=== PATIENT | female | born 1960 | race Caucasian/White ===

== ENCOUNTER 2017-08-13 06:18 | Day surgery (SDC) | payer BC ==
[~2017-08-13] VITALS: Ht 157.5 cm; Wt 64.4 kg
[~2017-08-13 06:18] MED LIST: ALBUTEROL SUL0.083 % IN; AMOXICILLIN500 MG PO; CIPRO500 MG OR; CIPRO500 MG PO; CIPROFLOXACN500 MG PO; FLEXERIL10 MG PO; FLEXERIL5 M1 PO; LORTAB 10-325 M1 TAB PO; LYRICA100 MG PO; MEDDOSEPAK PO; NAPROSYN500 MG PO; NO; NO MEDS; PERCOCET 5/325M1 TAB PO; PREDNISONE20 MG PO; PROAIR HFA IN; SYMBICORT 80-4.5MCG; TYLOPHEN500 MG PO; VALIUM5 MG PO
[2017-08-13 07:56] VITALS: BP 122/80
== END 2017-08-13 08:33 | disposition home or self-care (01) | DRG 558 ==
LOC: ORM 06:18
PROVIDERS: ATTEND Anesthesiology Pain Medicine
PROC: 3E0U33Z Introduction of Anti-inflammatory into Joints, Percutaneous Approach (ICD-10-PCS; principal; 2017-08-13)
PROC: 3E0U3BZ Introduction of Anesthetic Agent into Joints, Percutaneous Approach (ICD-10-PCS; 2017-08-13)
DX: M70.61 Trochanteric bursitis, right hip (principal); M70.71 Other bursitis of hip, right hip

== ENCOUNTER 2017-10-08 06:37 | Day surgery (SDC) | payer BC ==
[~2017-10-08] VITALS: Ht 157.5 cm; Wt 63.5 kg
[2017-10-08 08:24] VITALS: BP 105/63
== END 2017-10-08 09:05 | disposition home or self-care (01) | DRG 558 ==
LOC: ORM 06:37
PROVIDERS: ATTEND Anesthesiology Pain Medicine
PROC: 3E0U33Z Introduction of Anti-inflammatory into Joints, Percutaneous Approach (ICD-10-PCS; principal; 2017-10-08)
PROC: 3E0U3BZ Introduction of Anesthetic Agent into Joints, Percutaneous Approach (ICD-10-PCS; 2017-10-08)
DX: M70.61 Trochanteric bursitis, right hip (principal); M70.71 Other bursitis of hip, right hip

== ENCOUNTER 2018-03-11 06:20 | Day surgery (SDC) | payer BC ==
[~2018-03-11] VITALS: Ht 157.5 cm; Wt 64.4 kg
[~2018-03-11 06:20] MED LIST changes: +STIOLTO RESPIMA1 AER PO
[2018-03-11] MEDS ORDERED: [UNRECOGNIZED DRUG - OTHER] (06:39)
[2018-03-11 08:52] VITALS: BP 107/69
== END 2018-03-11 09:00 | disposition home or self-care (01) | DRG 951 ==
LOC: ENDO 06:20
PROVIDERS: ATTEND Surgery
PROC: 0DBK8ZX Excision of Ascending Colon, Via Natural or Artificial Opening Endoscopic, Diagnostic (ICD-10-PCS; principal; 2018-03-11)
PROC: 0DBN8ZX Excision of Sigmoid Colon, Via Natural or Artificial Opening Endoscopic, Diagnostic (ICD-10-PCS; 2018-03-11)
PROC: 0DBP8ZX Excision of Rectum, Via Natural or Artificial Opening Endoscopic, Diagnostic (ICD-10-PCS; 2018-03-11)
PROC: 0DBH8ZX Excision of Cecum, Via Natural or Artificial Opening Endoscopic, Diagnostic (ICD-10-PCS; 2018-03-11)
DX: Z12.11 Encounter for screening for malignant neoplasm of colon (principal); Q43.8 Other specified congenital malformations of intestine; D12.0 Benign neoplasm of cecum; D12.2 Benign neoplasm of ascending colon; K62.1 Rectal polyp; K63.5 Polyp of colon; K64.4 Residual hemorrhoidal skin tags; Z87.891 Personal history of nicotine dependence

== ENCOUNTER → 2018-09-02 | Outpatient (REF) | payer BC ==
[~2018-09-02] VITALS: Ht 157.5 cm; Wt 62.1 kg
[~2018-09-02] MED LIST changes: +VITAMIN B-121000 MCG PO; +VITAMIN C1000 MG PO; +VITAMIN D31000 UNI1 PO; +[UNRECOGNIZED DRUG - OTHER]
[2018-09-02 11:19] LABS: HEMATOCRIT 45.4 % (37.0-47.0); HEMOGLOBIN 15.1 g/dl (12.0-16.0); IMMATURE GRANULOCYTES 0.2 % (0.0-5.0); MEAN CORPUSCULAR HGB 30.9 pG CALC (26.0-32.0); MEAN CORPUSCULAR HGB CONC 33.3 g/L CALC (32.0-36.0); NEUT# 7.13 thou/uL (2.00-7.15); RED BLOOD COUNT 4.88 mill/uL (4.20-5.60); RED CELL DISTRI WIDTH 11.9 % (11.5-15.5)
[2018-09-02 11:22] LABS: URINE BILIRUBIN - DIPSTICK NEGATIVE (NEGATIVE); URINE BLOOD DIPSTICK MODERATE (NEGATIVE); URINE COLOR YELLOW; URINE GLUCOSE - DIPSTICK NEGATIVE (NEGATIVE); URINE KETONE NEGATIVE (NEGATIVE); URINE PROTEIN - DIPSTICK NEGATIVE (NEG-TRACE); URINE SPECIFIC GRAVITY <=1.005; URINE UROBILINOGEN - DIPSTICK 0.2 E.U./dL (0.2)
[2018-09-02 11:23] LABS: URINE LEUK ESTERASE LARGE (NEGATIVE); URINE NITRITE - DIPSTICK POSITIVE (Negative)
[2018-09-02 11:38] LABS: ANION GAP 15 (6-22 (CALC)); BUN 4 mg/dL (7-17); BUN/CREATININE RATIO 7 (12-20 (CALC)); CARBON DIOXIDE 27 mmol/l (22-30); CHLORIDE 100 mmol/l (95-108); CREATININE 0.5 mg/dL (0.5-1.0); GFR > 60 ML/MIN (>=60 (CALC)); GFR FOR AFR.AMER. > 60 ML/MIN (>=60 (CALC)); POTASSIUM 3.7 mmol/l (3.5-5.1); SODIUM 139 mmol/l (137-146)
[2018-09-02 11:39] LABS: ACT PARTIAL THROMBO TIME 29.3 SECONDS (20.0-32.5); PROTHROMBIN TIME 10.1 SECONDS (9.0-12.5)
[2018-09-02 11:41] LABS: URINE WBC 20-50 WBC/hpf (0-5)
[2018-09-02 13:25] VITALS: BP 123/83
== END | disposition home or self-care (01) | DRG 951 ==
LOC: ORM 09:30 → PO 10:05
PROVIDERS: ATTEND Obstetrics & Gynecology
DX: Z01.818 Encounter for other preprocedural examination (principal); R87.619 Unspecified abnormal cytological findings in specimens from cervix uteri; B96.20 Unspecified Escherichia coli [E. coli] as the cause of diseases classified elsewhere; M19.90 Unspecified osteoarthritis, unspecified site; J44.9 Chronic obstructive pulmonary disease, unspecified; J43.9 Emphysema, unspecified; J84.10 Pulmonary fibrosis, unspecified; G62.9 Polyneuropathy, unspecified; G56.02 Carpal tunnel syndrome, left upper limb; Z98.51 Tubal ligation status; Z90.49 Acquired absence of other specified parts of digestive tract; Z98.890 Other specified postprocedural states; F17.210 Nicotine dependence, cigarettes, uncomplicated; Z97.2 Presence of dental prosthetic device (complete) (partial); R05 Cough

== ENCOUNTER 2018-09-03 06:44 | Day surgery (SDC) | payer BC ==
[~2018-09-03] VITALS: Ht 157.5 cm; Wt 62.1 kg
[2018-09-03 09:33] VITALS: BP 83/55
== END 2018-09-03 09:53 | disposition home or self-care (01) | DRG 745 ==
LOC: ORM 06:44
PROVIDERS: ATTEND Obstetrics & Gynecology
PROC: 0UBC7ZX Excision of Cervix, Via Natural or Artificial Opening, Diagnostic (ICD-10-PCS; principal; 2018-09-03)
DX: D06.0 Carcinoma in situ of endocervix (principal); F17.200 Nicotine dependence, unspecified, uncomplicated; Z01.818 Encounter for other preprocedural examination; R87.619 Unspecified abnormal cytological findings in specimens from cervix uteri; B96.20 Unspecified Escherichia coli [E. coli] as the cause of diseases classified elsewhere; M19.90 Unspecified osteoarthritis, unspecified site; J44.9 Chronic obstructive pulmonary disease, unspecified; J84.10 Pulmonary fibrosis, unspecified; G62.9 Polyneuropathy, unspecified; G56.02 Carpal tunnel syndrome, left upper limb; Z98.51 Tubal ligation status; Z90.49 Acquired absence of other specified parts of digestive tract; Z98.890 Other specified postprocedural states; F17.210 Nicotine dependence, cigarettes, uncomplicated; Z97.2 Presence of dental prosthetic device (complete) (partial); R05 Cough
CPT/HCPCS: J0131

== ENCOUNTER → 2018-09-15 | Outpatient (REF) | payer BC | END | disposition home or self-care (01) | DRG 204 | LOC: DI 14:47 | PROVIDERS: ATTEND Internal Medicine | DX: R05 Cough (principal); J44.9 Chronic obstructive pulmonary disease, unspecified ==

== ENCOUNTER → 2018-09-21 | Outpatient (REF) | payer BC | END | disposition home or self-care (01) | DRG 756 | LOC: ULTRASND 13:03 | PROVIDERS: ATTEND Obstetrics & Gynecology | DX: D06.9 Carcinoma in situ of cervix, unspecified (principal) ==

== ENCOUNTER 2021-10-02 16:08 | Observation (INO) | payer BC ==
[~2021-10-02] VITALS: Ht 157.5 cm; Wt 51.4 kg
[2021-10-02] VITALS (13 sets, daily range): BP systolic 111–153; BP diastolic 48–82
[~2021-10-02 16:08] MED LIST changes: -ALBUTEROL SUL0.083 % IN; +ALBUTEROL1.25 MG/3 IN; +CYANOCOBAL1000 MCG/M IM; +STIOLTO RESPIMA1 AER IN; -STIOLTO RESPIMA1 AER PO; +TYLENOL500 MG PO; -TYLOPHEN500 MG PO; -VITAMIN B-121000 MCG PO
--- NOTE | 2021-10-02 16:08 | NUR ---
PT TO ROOM WITH TACYPNEA AND SOB FOR BEDSIDE EVAL
[2021-10-02 16:48] LABS: HEMOGLOBIN 15.4 g/dl (12.0-16.0); IMMATURE GRANULOCYTES 0.3 % (0.0-5.0); MEAN CELL VOLUME 96.4 fL CALC (80.0-100.0); MEAN CORPUSCULAR HGB 30.9 pG CALC (26.0-32.0); MEAN CORPUSCULAR HGB CONC 32.1 g/dL CAL (32.0-36.0); NEUT# 11.65 thou/uL (2.00-7.15); RED BLOOD COUNT 4.98 mill/uL (4.20-5.60); RED CELL DISTRI WIDTH 13.3 % (11.5-15.5)
[2021-10-02 16:57] LABS: ALBUMIN 3.7 g/dL (3.2-5.0); ALKALINE PHOSPHATASE 71 u/l (38-126); BUN 9 mg/dL (8-23); BUN/CREATININE RATIO 17 (12-20 (CALC)); CARBON DIOXIDE 29 mmol/l (22-30); CHLORIDE 96 mmol/l (95-108); CREATININE 0.5 mg/dL (0.5-1.0); GFR > 60 ML/MIN (>=60 (CALC)); GFR FOR AFR.AMER. > 60 ML/MIN (>=60 (CALC)); POTASSIUM 3.6 mmol/l (3.5-5.1); SGOT/AST 13 u/l (9-36); TOTAL PROTEIN 6.7 g/dL (6.3-8.2)
[2021-10-02 17:03] LABS: ANION GAP 10 (6-22 (CALC)); SODIUM 131 mmol/l (137-146)
--- NOTE | 2021-10-02 17:05 | NUR ---
PT REPORTS BREATHING IMPROVED SINCE PLACED ON OXYGEN. PT REPORTS CP WITH DEEP BREATHING.
[2021-10-02 17:08] LABS: MYOGLOBIN 28 ng/mL (0 - 62)
--- NOTE | 2021-10-02 17:20 | NUR ---
DR GUTIÉRREZ NOTIFIED OF PT'S TEMPERATURE.
--- NOTE | 2021-10-02 18:20 | NUR ---
PT RESTING, DENIES NEEDS, LIGHTS DIMMED FOR COMFORT
[2021-10-02 19:08] LABS: URINE BILIRUBIN - DIPSTICK NEGATIVE (NEGATIVE); URINE BLOOD DIPSTICK TRACE-INTACT (NEGATIVE); URINE GLUCOSE - DIPSTICK 100 mg/dL (NEGATIVE); URINE KETONE TRACE mg/dL (NEGATIVE); URINE LEUK ESTERASE NEGATIVE (NEGATIVE); URINE PH 7.5 (4.5-8.0); URINE PROTEIN - DIPSTICK TRACE mg/dL (NEG-TRACE); URINE SPECIFIC GRAVITY 1.025
[2021-10-02 19:10] LABS: URINE COLOR DK. YELLOW; URINE NITRITE - DIPSTICK NEGATIVE (Negative)
--- NOTE | 2021-10-02 19:20 | NUR ---
FEVER RESOLVED, PT STATES SHE IS NO LONGER FEELING COLD. PT STABLE WILL CONTINUE TO MONITOR.
--- NOTE | 2021-10-02 20:42 | NUR ---
CALL LACED TO MED/SURG SBAR REPORT GIVEN TO BILL GARCIA
--- NOTE | 2021-10-02 20:58 | NUR ---
PT TAKEN BY STRETCHER TO MED/SURG WITH TELE IN PLACE. PT'S PAPERWORK AND BELONGINGS HANDED OFF TO STAFF. PT IN STABLE CONDITION AT TIME OF ADMISSION.
--- NOTE | 2021-10-02 21:39 | NUR ---
PATIENT ADMITTED FROM ER VIA STRETCHER WITH ER STAFF IN ATTENDANCE. PATIENT IS ABLE TO TRANSFER TO THE BED. O2 VIA NASAL CANNULA IN PLACE WITH O2 SAT OF 98% AT THIS ITME. VS TAKEN AND RECORDED. AFEBRILE-ALERT AND ORIENTEDX3. ADMITTED FOR PNEUMONIA, HX OF COPD. PATIENT WITH LOOSE NON-PRODUCTIVE COUGH. LUNGS ARE DIMINISHED THROUGHOUT. STATES THAT SHE IS A HEAVY SMOKER AND USES NEB TREATMENTS AT HOME,ALSO STATES THAT SHE HAS BEEN LOOSING WEIGHT RECENTLY IN SHORT AMT OF TIME. WAS REFERRED TO PERFORMANCE IMPROVEMENT SPECIALIST IN [place] BUT HAS NOT REINIER HIM YET. ABD IS OFT WITH ACTIVE BS. LAST BM WAS TODAY. DENIES ANY DIFFICULTY WITH URINATION. NO PERIPHERAL EDEMA NOTED-PERIPHERAL PULSES ARE PALPABLE. PROVIDED WITH HEALTHY CHOICE TURKEY DINNER AND JUICE, ORIENTED TO ROOM AND SURROUNDINGS. INSTRUCTED ON US OF THE NURSE CALL LIGHT SYSTEM AND TV REMOTE. SAFETY PRECAUTIONS REINFORCED. CALL LIGHT IN REACH. WILL CONT TO MONITOR.
[2021-10-03] VITALS (8 sets, daily range): BP systolic 100–132; BP diastolic 43–61
--- NOTE | 2021-10-03 00:38 | NUR ---
PATIENT RESTING IN BED WITH O2 VIA NASAL CANNULA IN PLACE. NO COMPLAINTS AT THIS TIME. TELE MONITOR IN PLACE WITH LST READING [id number]. SAFETY PRECAUTIONS REINFORCE. CALL LIGHT IN REACH. WILL CONT TO MONITOR.
[2021-10-03 05:24] LABS: HEMATOCRIT 49.9 % (37.0-47.0); HEMOGLOBIN 15.8 g/dl (12.0-16.0); MEAN CELL VOLUME 97.3 fL CALC (80.0-100.0); MEAN CORPUSCULAR HGB 30.8 pG CALC (26.0-32.0); MEAN CORPUSCULAR HGB CONC 31.7 g/dL CAL (32.0-36.0); RED BLOOD COUNT 5.13 mill/uL (4.20-5.60); RED CELL DISTRI WIDTH 13.2 % (11.5-15.5)
[2021-10-03 05:35] LABS: ANION GAP 11 (6-22 (CALC)); BUN 12 mg/dL (8-23); BUN/CREATININE RATIO 27 (12-20 (CALC)); CARBON DIOXIDE 29 mmol/l (22-30); CHLORIDE 98 mmol/l (95-108); CREATININE 0.5 mg/dL (0.5-1.0); GFR > 60 ML/MIN (>=60 (CALC)); GFR FOR AFR.AMER. > 60 ML/MIN (>=60 (CALC)); MAGNESIUM 2.3 mg/dL (1.6-2.3); POTASSIUM 4.1 mmol/l (3.5-5.1); SODIUM 134 mmol/l (137-146)
--- NOTE | 2021-10-03 07:36 | NUR ---
Patient is screened for PT intervention and no needs are identified at this time
--- NOTE | 2021-10-03 08:00 | NUR ---
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
[2021-10-03] MEDS ORDERED: LIPITOR10 M1 PO (09:51)
[2021-10-03] MEDS ORDERED: TRAMADOL HYDROC50 M1 PO (09:51)
[2021-10-03] MEDS ORDERED: AMBIEN5 MG PO (09:52)
[2021-10-03] MEDS ORDERED: ALLERGY RE50 MCG/ACT NAB (09:52)
[2021-10-03] MEDS ORDERED: TIZANIDINE4 MG PO (09:53)
--- NOTE | 2021-10-03 12:00 | NUR ---
RESTING IN BED, REPORTS HEADACHE NOT RELIEVED BUT DOES ACCEPT NON-MEDICATION THERAPY WHEN OFFERED (COOL COMPRESS), WILL CONTINUE TO MONITOR AND ADDRESS NEEDS.
--- NOTE | 2021-10-03 17:25 | NUR ---
PT REQUESTED NEB TX EARLY
--- NOTE | 2021-10-03 20:40 | NUR ---
PT IN BED A&O X3. SHALLOW RESPIRATIONS; DIMINISHED BREATH SOUNDS UPON AUSCULTATION. 02 @ 2L VIA NASAL CANNULA IN PLACE. PT HAS WHITE PRODUCTIVE COUGH. TELEMETRY IN PLACE. ACTIVE BOWEL SOUNDS X4 QUADRANTS. PT C/O PAIN ON LOWER EXTREMITIES 02/27; ADMINISTERED TRAMADOL. PT REFUSED SCHEDULED MEDICATION LOVENOX; EXPLAINED PT LOVENOX'S USE. STILL PT REFUSED. SAFETY PRECAUTIONS IN PLACE WITH CALL LIGHT IN REACH.
[2021-10-04] VITALS (7 sets, daily range): BP systolic 129–133; BP diastolic 49–65
--- NOTE | 2021-10-04 | NUR ---
PT IN BED WATCHING TV. NO DISTRES NOTED. SAFETY PRECAUTIONS WITH CALL LIGHT IN REACH.
--- NOTE | 2021-10-04 02:10 | NUR ---
PT C/O HEADACHE 01/27; ADMINISTERED PAIN MEDICATION. SAFETY PRECAUTIONS IN PLACE. CALL LIGHT WITHIN REACH.
--- NOTE | 2021-10-04 04:25 | NUR ---
PT SLEEPING. NO DISTRESS OR PAIN NOTED. TELEMETRY AND SAFETY PRECAUTIONS IN PLACE. IV SITE HEALTHY AND PATENT. CALL LIGHT WITHIN REACH.
[2021-10-04 05:40] LABS: HEMATOCRIT 43.1 % (37.0-47.0); HEMOGLOBIN 13.6 g/dl (12.0-16.0); MEAN CELL VOLUME 97.1 fL CALC (80.0-100.0); MEAN CORPUSCULAR HGB 30.6 pG CALC (26.0-32.0); MEAN CORPUSCULAR HGB CONC 31.6 g/dL CAL (32.0-36.0); RED BLOOD COUNT 4.44 mill/uL (4.20-5.60); RED CELL DISTRI WIDTH 13.1 % (11.5-15.5)
[2021-10-04 06:08] LABS: ANION GAP 10 (6-22 (CALC)); BUN 11 mg/dL (8-23); BUN/CREATININE RATIO 26 (12-20 (CALC)); CARBON DIOXIDE 30 mmol/l (22-30); CHLORIDE 98 mmol/l (95-108); CREATININE 0.4 mg/dL (0.5-1.0); GFR > 60 ML/MIN (>=60 (CALC)); GFR FOR AFR.AMER. > 60 ML/MIN (>=60 (CALC)); MAGNESIUM 1.9 mg/dL (1.6-2.3); POTASSIUM 3.5 mmol/l (3.5-5.1); SODIUM 134 mmol/l (137-146)
--- NOTE | 2021-10-04 07:00 | NUR ---
RECEIVE REPORT FROM DAPHNE KHAN.
--- NOTE | 2021-10-04 08:00 | NUR ---
PATIENT ALERT AND ORIENTED. NO RESPIRATORY DISTRESS AT THIS TIME. PATIENT IS EDUCATES ABOUT MEDICATIONS AND NURSING PLAN FOR TODAY. PATIENT REFER UNDERSTAND.
--- NOTE | 2021-10-04 12:16 | NUR ---
PATIENT STABLE RESTING IN BED.
[2021-10-04] MEDS ORDERED: MEDDOSEPAK PO (13:34)
[2021-10-04] MEDS ORDERED: ZITHROMAX500 MG PO (13:34)
--- NOTE | 2021-10-04 15:22 | NUR ---
PATIENT DISCHARD. IS EDUCATED ABOUT MEDICATIONS AND PRIMARY DOCTOR FOLLOW-UP. PATIENT REFER UNDERSTAND.
--- NOTE | 2021-10-10 10:14 | NUR ---
Pneumonia post discharge follow up call completed today, 10/10/21. Pt states she is doing very well. Pt. has already seen PCP for follow up. She obtained discharge medications and has taken without issue. Pt. has had no fever, chills, or SOB since discharge. Very pleased with care received during hospitalization. No questions or concerns at this time.
== END 2021-10-04 15:33 | disposition home or self-care (01) | DRG 190 ==
LOC: ED 16:08 → ED-I 17:28 → ED 17:30 → MS2 17:38
PROVIDERS: ADMIT Emergency Medicine; ATTEND Hospitalist
DX: J44.1 Chronic obstructive pulmonary disease with (acute) exacerbation (principal); J18.9 Pneumonia, unspecified organism; J96.01 Acute respiratory failure with hypoxia; J44.0 Chronic obstructive pulmonary disease with (acute) lower respiratory infection; E78.5 Hyperlipidemia, unspecified; F17.200 Nicotine dependence, unspecified, uncomplicated; Z20.822 Contact with and (suspected) exposure to COVID-19
CPT/HCPCS: G0378; J1650

== ENCOUNTER 2021-10-14 18:47 | Emergency (ER) | payer BC ==
[~2021-10-14] VITALS: Ht 157.5 cm; Wt 52.7 kg
[2021-10-14] VITALS (10 sets, daily range): BP systolic 96–163; BP diastolic 64–102
[~2021-10-14 18:47] MED LIST changes: +ALLERGY RE50 MCG/ACT NAB; +AMBIEN5 MG PO; +LIPITOR10 M1 PO; +TIZANIDINE4 MG PO; +TRAMADOL HYDROC50 M1 PO; +ZITHROMAX500 MG PO
[2021-10-14 19:22] LABS: HEMOGLOBIN 15.5 g/dl (12.0-16.0); IMMATURE GRANULOCYTES 0.4 % (0.0-5.0); MEAN CELL VOLUME 97.8 fL CALC (80.0-100.0); MEAN CORPUSCULAR HGB 30.6 pG CALC (26.0-32.0); MEAN CORPUSCULAR HGB CONC 31.3 g/dL CAL (32.0-36.0); NEUT# 7.09 thou/uL (2.00-7.15); RED BLOOD COUNT 5.06 mill/uL (4.20-5.60)
[2021-10-14 19:24] LABS: HEMATOCRIT 49.5 % (37.0-47.0)
[2021-10-14 19:47] LABS: ACT PARTIAL THROMBO TIME 25.2 SECONDS (20.0-32.5); INTERNATIONAL NORMALIZED RATIO 0.9 RATIO (0.7-1.3); PROTHROMBIN TIME 9.6 SECONDS (9.0-12.5)
[2021-10-14 19:54] LABS: ALBUMIN 3.9 g/dL (3.2-5.0); ALKALINE PHOSPHATASE 74 u/l (38-126); BUN 7 mg/dL (8-23); BUN/CREATININE RATIO 11 (12-20 (CALC)); CARBON DIOXIDE 35 mmol/l (22-30); CHLORIDE 98 mmol/l (95-108); CREATININE 0.7 mg/dL (0.5-1.0); GFR > 60 ML/MIN (>=60 (CALC)); GFR FOR AFR.AMER. > 60 ML/MIN (>=60 (CALC)); SGOT/AST 13 u/l (9-36); SODIUM 137 mmol/l (137-146); TOTAL PROTEIN 7.1 g/dL (6.3-8.2)
[2021-10-14 19:55] LABS: D-DIMER 0.36 mg/L (0.19-0.60)
[2021-10-14 19:58] LABS: ANION GAP 8 (6-22 (CALC)); BILIRUBIN, TOTAL 0.9 mg/dL (0.0-1.4); POTASSIUM 4.4 mmol/l (3.5-5.1)
[2021-10-14 20:06] LABS: MYOGLOBIN 26 ng/mL (0 - 62)
[2021-10-14] MEDS ORDERED: PREDNISONE50 MG PO (21:02)
== END 2021-10-14 21:59 | disposition home or self-care (01) | DRG 192 ==
LOC: ED 18:47
PROVIDERS: Family Medicine
DX: J44.1 Chronic obstructive pulmonary disease with (acute) exacerbation (principal); F17.200 Nicotine dependence, unspecified, uncomplicated; Z87.01 Personal history of pneumonia (recurrent); Z20.822 Contact with and (suspected) exposure to COVID-19

== ENCOUNTER 2022-05-08 13:43 | Inpatient (IN) | payer BC ==
[2022-05-08] VITALS (29 sets, daily range): BP systolic 97–132; BP diastolic 52–84
[~2022-05-08] VITALS: Ht 157.5 cm; Wt 50.9 kg
[~2022-05-08 13:43] MED LIST changes: +PREDNISONE50 MG PO
--- NOTE | 2022-05-08 13:50 | NUR ---
PT TO ROOM WITH STEADY GAIT
[2022-05-08] MEDS ORDERED: VENTOLIN HFA108 MCG (14:04)
[2022-05-08] MEDS ORDERED: KEFLEX500 MG PO (14:04)
[2022-05-08 14:15] LABS: HEMATOCRIT 40.6 % (37.0-47.0); IMMATURE GRANULOCYTES 0.5 % (0.0-5.0); MEAN CELL VOLUME 96.2 fL CALC (80.0-100.0); MEAN CORPUSCULAR HGB 30.8 pG CALC (26.0-32.0); NEUT# 0.79 thou/uL (2.00-7.15); RED BLOOD COUNT 4.22 mill/uL (4.20-5.60); RED CELL DISTRI WIDTH 12.6 % (11.5-15.5)
--- NOTE | 2022-05-08 14:21 | NUR ---
pt refused asprin, states that she does not take it due to ulcers.
[2022-05-08 14:27] LABS: ALBUMIN 3.7 g/dL (3.2-5.0); ALKALINE PHOSPHATASE 65 u/l (38-126); ANION GAP 12 (6-22 (CALC)); BILIRUBIN, TOTAL 0.4 mg/dL (0.0-1.4); BUN 3 mg/dL (8-23); BUN/CREATININE RATIO 6 (12-20 (CALC)); CARBON DIOXIDE 31 mmol/l (22-30); CHLORIDE 92 mmol/l (95-108); CREATININE 0.6 mg/dL (0.5-1.0); GFR FOR AFR.AMER. > 60 ML/MIN (>=60 (CALC)); GFR OTHER RACES > 60 ML/MIN (>=60 (CALC)); POTASSIUM 3.6 mmol/l (3.5-5.1); SGOT/AST 18 u/l (9-36); SODIUM 131 mmol/l (137-146); TOTAL PROTEIN 6.6 g/dL (6.3-8.2)
--- NOTE | 2022-05-08 15:20 | NUR ---
Reassessment of patient completed. No distress noted.
--- NOTE | 2022-05-08 16:20 | NUR ---
Reassessment of patient completed. No distress noted.
--- NOTE | 2022-05-08 21:00 | NUR ---
REPORT GIVEN TO NAYE KHAN. PT IN NAD.
[2022-05-09] VITALS (9 sets, daily range): BP systolic 79–110; BP diastolic 37–62
[2022-05-09 05:42] LABS: ALBUMIN 3.5 g/dL (3.2-5.0); ALKALINE PHOSPHATASE 76 u/l (38-126); BILIRUBIN, TOTAL 0.3 mg/dL (0.0-1.4); BUN 5 mg/dL (8-23); BUN/CREATININE RATIO 11 (12-20 (CALC)); CARBON DIOXIDE 30 mmol/l (22-30); CHLORIDE 95 mmol/l (95-108); CREATININE 0.4 mg/dL (0.5-1.0); GFR FOR AFR.AMER. > 60 ML/MIN (>=60 (CALC)); GFR OTHER RACES > 60 ML/MIN (>=60 (CALC)); SGOT/AST 15 u/l (9-36); SODIUM 131 mmol/l (137-146); TOTAL PROTEIN 5.9 g/dL (6.3-8.2)
[2022-05-09 05:46] LABS: ANION GAP 11 (6-22 (CALC)); POTASSIUM 4.5 mmol/l (3.5-5.1)
[2022-05-09 06:02] LABS: HEMATOCRIT 41.2 % (37.0-47.0); HEMOGLOBIN 13.1 g/dl (12.0-16.0); MEAN CELL VOLUME 96.5 fL CALC (80.0-100.0); MEAN CORPUSCULAR HGB 30.7 pG CALC (26.0-32.0); MEAN CORPUSCULAR HGB CONC 31.8 g/dL CAL (32.0-36.0); NEUT# 1.13 thou/uL (2.00-7.15); RED BLOOD COUNT 4.27 mill/uL (4.20-5.60); RED CELL DISTRI WIDTH 12.4 % (11.5-15.5)
--- NOTE | 2022-05-09 19:15 | NUR ---
REPORT RECEIEVED FROM Fredy SMYTH RN
[2022-05-10] VITALS: BP 106/51
--- NOTE | 2022-05-10 00:45 | NUR ---
PATIENT UP TO THE BATHROOM AT THIS TIME. SBA PROVIDED. CALL LIGHT AND BEDSIDE TABLE WITHIN REACH.
[2022-05-10 03:57] VITALS: BP 126/73
[2022-05-10 04:00] VITALS: BP 126/73
--- NOTE | 2022-05-10 04:30 | NUR ---
PATIENT RESTING QUIETLY DENIES ANY CURRENT NEEDS. CALL LIGHT AND BEDSIDE TABLE WITHIN REACH.
[2022-05-10 05:58] LABS: HEMATOCRIT 37.3 % (37.0-47.0); HEMOGLOBIN 12.2 g/dl (12.0-16.0); IMMATURE GRANULOCYTES 0.4 % (0.0-5.0); MEAN CELL VOLUME 95.6 fL CALC (80.0-100.0); MEAN CORPUSCULAR HGB 31.3 pG CALC (26.0-32.0); MEAN CORPUSCULAR HGB CONC 32.7 g/dL CAL (32.0-36.0); NEUT# 0.81 thou/uL (2.00-7.15); RED BLOOD COUNT 3.9 mill/uL (4.20-5.60)
[2022-05-10 05:59] LABS: ANION GAP 9 (6-22 (CALC)); BUN 7 mg/dL (8-23); BUN/CREATININE RATIO 13 (12-20 (CALC)); CARBON DIOXIDE 32 mmol/l (22-30); CHLORIDE 96 mmol/l (95-108); CREATININE 0.5 mg/dL (0.5-1.0); GFR FOR AFR.AMER. > 60 ML/MIN (>=60 (CALC)); GFR OTHER RACES > 60 ML/MIN (>=60 (CALC)); POTASSIUM 3.8 mmol/l (3.5-5.1); SODIUM 134 mmol/l (137-146)
[2022-05-10 06:16] VITALS: BP 123/68
[2022-05-10 07:39] VITALS: BP 123/68
--- NOTE | 2022-05-10 08:00 | NUR ---
PT RESTING COMFORTABLY VITAL SIGNS STABLE. NO NEEDS AT THIS TIME.
[2022-05-10] MEDS ORDERED: MEDDOSEPAK PO (12:06)
[2022-05-10] MEDS ORDERED: LEVOFLOXACIN500MG PO (12:06)
--- NOTE | 2022-05-10 13:24 | NUR ---
DC INSTRUCTIONS GIVEN, MEDICATION INSTRUCTIONS GIVEN, IV DCED, TELE DCED. PT TAKEN TO CAR IN WC BY STEAM CLEAN MACHINE OPERATOR.
== END 2022-05-10 13:24 | disposition home or self-care (01) | DRG 190 ==
LOC: ED 13:43 → ED-I 18:13 → ED 18:42 → MS2 18:43
PROVIDERS: Family Medicine; Nurse Practitioner; ADMIT Internal Medicine; ATTEND Internal Medicine
DX: J44.1 Chronic obstructive pulmonary disease with (acute) exacerbation (principal); J18.9 Pneumonia, unspecified organism; J96.01 Acute respiratory failure with hypoxia; J44.0 Chronic obstructive pulmonary disease with (acute) lower respiratory infection; D72.819 Decreased white blood cell count, unspecified; G89.29 Other chronic pain; F17.210 Nicotine dependence, cigarettes, uncomplicated; T36.1X6A Underdosing of cephalosporins and other beta-lactam antibiotics, initial encounter; Z99.81 Dependence on supplemental oxygen; Z91.138 Patient's unintentional underdosing of medication regimen for other reason; Z20.822 Contact with and (suspected) exposure to COVID-19
CPT/HCPCS: J1650; Q9967

== ENCOUNTER 2022-11-08 17:00 | Emergency (ER) | payer BC ==
[~2022-11-08] VITALS: Ht 157.5 cm; Wt 49.0 kg
[~2022-11-08 17:00] MED LIST changes: +KEFLEX500 MG PO; +LEVOFLOXACIN500MG PO; +VENTOLIN HFA108 MCG
[2022-11-08 17:22] VITALS: BP 142/70
[2022-11-08 17:30] VITALS: BP 147/78
[2022-11-08 18:02] VITALS: BP 128/83
[2022-11-08] MEDS ORDERED: PREDNISONE10 MG PO (18:20)
[2022-11-08 18:31] VITALS: BP 176/83
[2022-11-08 18:52] VITALS: BP 163/74
== END 2022-11-08 19:00 | disposition home or self-care (01) | DRG 192 ==
LOC: ED 17:00
DX: J44.1 Chronic obstructive pulmonary disease with (acute) exacerbation (principal); F17.210 Nicotine dependence, cigarettes, uncomplicated; Z99.81 Dependence on supplemental oxygen

== ENCOUNTER 2023-04-22 19:36 | Observation (INO) | payer BC ==
[~2023-04-22] VITALS: Ht 157.5 cm; Wt 48.6 kg
[2023-04-22] VITALS (17 sets, daily range): BP systolic 97–151; BP diastolic 53–110
[~2023-04-22 19:36] MED LIST changes: +PREDNISONE10 MG PO
[2023-04-22 21:15] LABS: BASO% 0.5 % (0-3); HEMATOCRIT 40.9 % (37.0-47.0); HEMOGLOBIN 12.9 g/dl (12.0-16.0); IMMATURE GRANULOCYTES 0.1 % (0.0-5.0); LYMPH% 15.6 % (15-41); MEAN CELL VOLUME 98.3 fL CALC (80.0-100.0); MEAN CORPUSCULAR HGB CONC 31.5 g/dL CAL (32.0-36.0); MONO% 7.9 % (2-13); NEUT# 7.32 thou/uL (2.00-7.15); NEUT% 74.9 % (42-76); RED BLOOD COUNT 4.16 mill/uL (4.20-5.60)
[2023-04-22 21:32] LABS: ALBUMIN 3.9 g/dL (3.2-5.0); ALKALINE PHOSPHATASE 74 u/l (38-126); ANION GAP 13 (6-22 (CALC)); BUN 7 mg/dL (8-23); BUN/CREATININE RATIO 16 (12-20 (CALC)); CARBON DIOXIDE 27 mmol/l (22-30); CHLORIDE 97 mmol/l (95-108); CREATININE 0.5 mg/dL (0.5-1.0); GFR FOR AFR.AMER. > 60 ML/MIN (>=60 (CALC)); GFR OTHER RACES > 60 ML/MIN (>=60 (CALC)); POTASSIUM 3.9 mmol/l (3.5-5.1); SGOT/AST 17 u/l (9-36); SODIUM 132 mmol/l (137-146); TOTAL PROTEIN 6.6 g/dL (6.3-8.2)
[2023-04-22 21:33] LABS: BILIRUBIN, TOTAL 0.9 mg/dL (0.02-1.3)
[2023-04-22] MEDS ORDERED: ATORVASTATIN CA10 MG PO (21:52)
[2023-04-23] VITALS (8 sets, daily range): BP systolic 90–122; BP diastolic 45–83
[2023-04-23] MEDS ORDERED: PREDNISONE10 MG PO (12:15)
[2023-04-23] MEDS ORDERED: LEVOFLOXACIN500MG PO (12:15)
== END 2023-04-23 15:10 | disposition home or self-care (01) | DRG 190 ==
LOC: ED 19:36 → ED-I 22:11 → ED 22:34 → MS2 22:35
PROVIDERS: Nurse Practitioner; ADMIT Internal Medicine; ATTEND Internal Medicine
DX: J44.1 Chronic obstructive pulmonary disease with (acute) exacerbation (principal); J18.9 Pneumonia, unspecified organism; J96.11 Chronic respiratory failure with hypoxia; J44.0 Chronic obstructive pulmonary disease with (acute) lower respiratory infection; M19.90 Unspecified osteoarthritis, unspecified site; F17.200 Nicotine dependence, unspecified, uncomplicated; Z99.81 Dependence on supplemental oxygen; Z20.822 Contact with and (suspected) exposure to COVID-19
CPT/HCPCS: G0378